=== PATIENT | female | born 1995 | race Caucasian/White ===

== ENCOUNTER → 2016-05-27 | Outpatient (CLI) | payer OTHER, MEDICAID ==
[~2016-05-27] MED LIST: DIFL150T PO; IBUP-232 PO; PROZ20CA11 PO; ZANTTAB PO; ZOFR4TAB3 SL
== END ==
LOC: HPND 09:54
PROVIDERS: ATTEND Obstetrics & Gynecology
DX: O35.8XX0 Maternal care for other (suspected) fetal abnormality and damage, not applicable or unspecified (principal)
CPT/HCPCS: 76811

== ENCOUNTER 2016-07-07 15:28 | Emergency (ER) | payer OTHER, MEDICAID ==
[~2016-07-07 15:28] MED LIST changes: -DIFL150T PO; -IBUP-232 PO; -PROZ20CA11 PO
[2016-07-07 15:48] VITALS: BP 120/71; PULSE 93; RESP 20; TEMP 98.3
[2016-07-07 16:15] VITALS: PULSE 89
[2016-07-07 16:20] VITALS: PULSE 86
--- NOTE | 2016-07-07 16:58 | PD ---
HPI Chief Complaint leaking fluid? Date Seen: Jul 07, 2016 Time Seen: 16:30 Travel History International Travel<30 Days: No Contact w/Intl Traveler<30Days: No Known Affected Area: No History of Present Illness HPI Pt is a 21 y/o with IUP at 32w5d who presents for evaluation of possible leaking fluid. Pt states that for past 2 days, she has noticed increased vaginal leaking, enough that underwear gets wet and she needs to change. Also noted streak of blood in underwear today. reports some irregular red-youssef contractions. +FM denies vaginal irritation/odor. Para: 0 : 2 History Past Medical History Narrative Medical depression Past Surgical History Surgical History: No Previous Surgery Family History Family History: CAD, htn, stroke, DM Social History Alcohol Use: No Tobacco Use: No Substance Abuse: No Allergies-Medications (Allergen,Severity, Reaction): Coded Allergies: Codeine (Verified Allergy, Severe, 02/04/16) Flagyl (Verified Allergy, Severe, 02/04/16) Sulfa (Verified Allergy, Severe, 02/04/16) Latex (Verified Allergy, Mild, RASH, 02/04/16) Home Meds Active Scripts Ondansetron Odt (Zofran Odt)4 Mg Tab4 Mg SL Q6HR PRN (Nausea/Vomiting) #10 TAB Ref 0 Prov:Zach Arora MD 01/20/16 Ranitidine (Zantac 150 Maximum Strength)150 Mg [id number] Mg PO BID 30 Days Prov:Zach Arora MD 01/20/16 Review of Systems General / Constitutional: No: Fever, Weight Gain, Weight Loss, Chills, Other Eyes: No: Diploplia, Blurred Vision, Visual changes, Pain, Photophobia, Other HENT: No: Headaches, Vertigo, Dental Difficulties, Lightheadedness, Other Cardiovascular: No: Irregular Rhythm, Chest Pain or Discomfort, Palpitations, Tachycardia, Syncope, Varicosities, Edema, Cyanosis, Other Respiratory: No: Cough, Short of Breath, Wheezing, Other Gastrointestinal: No: Nausea, Vomiting, Diarrhea, Abdominal Pain, Hematemesis, Hematochezia, Constipation, Changes in Bowel Habits, Indigestion, Loss of Appetite, Other Genitourinary: No: Urgency, Frequency, Dysuria, Nocturia, Hematuria, Decreased Urinary Output, Oliguria, Hesitancy, Dribbling, Incontinence, Pelvic Pain, Dyspareunia, Discharge, Menorrhagia, Vaginal Bleeding, Other Musculoskeletal: No: Limited ROM, Weakness, Cramping, Edema, Pain, Other Skin: No Rash, No Itching, No Dryness, No Lumps, No Change in Pigmentation, No Change in Nails, No Alopecia, No Lesions, No Breast Lumps, No Breast Tenderness , No Breast Swelling, No Other Neurologic: No: Weakness, Dizziness, Syncope, Focal Abnormalities, Coordination Problem, Headache, Slurred Speech, Seizures, Other Psychiatric: No: Anxiety, Depression, Suicidal Ideations, Disorder of Thought, Mood Disorder, Substance Abuse, Homicidal Ideation, Other Endocrine: No: Heat Intolerance, Cold Intolerance, Polydipsia, Polyuria, Other Hematologic/Lymphatic: No Easy Bruising, No Lymph Node Enlargement, No Other Physical Exam 120/71, 93, 20, 98.3 Narrative GENERAL: Well-nourished, well-developed patient. SKIN: Warm and dry. HEAD: Normocephalic and atraumatic. EYES: No scleral icterus. No injection or drainage. ENT: No nasal drainage noted. Mucous membranes pink. Airway patent. NECK: Supple, trachea midline. No JVD. CARDIOVASCULAR: Regular rate and rhythm without murmurs, gallops, or rubs. RESPIRATORY: Breath sounds equal bilaterally. No accessory muscle use. ABDOMEN/GI: Abdomen soft, non-tender, bowel sounds present, no rebound, no guarding Gravid GENITOURINARY: External Genitalia: intact and normal in appearance BUS glands: [wnl-] Cervix: visually closed Dilatation: closed Effacement: long Station: high Presentation: - Membranes: intact, amnisure neg Uterine Contractions: none spec exam: thick white discharge, adherent to vaginal vault, moderate amount of white fluid in vault FHT's: Category: [1] Baseline: 130s Reactive: yes Variability: mod Decels: no EXTREMITIES: No cyanosis or edema. BACK: Nontender without obvious deformity. No CVA tenderness. NEUROLOGICAL: Awake and alert. Motor and sensory grossly within normal limits. Five out of 5 muscle strength in all muscle groups. Normal speech. Data Data Vital Signs Reviewed: Yes Orders Vital Signs (Adult) .ON ADMISSION (07/07/16 15:54) ^ Labor Status (07/07/16 15:54) ^ Non Stress Test (07/07/16 15:54) ^ Hydration (07/07/16 15:54) Pamg-1 Test .ONCE (07/07/16 15:54) Vital Signs (Adult) .ON ADMISSION (07/07/16 16:38) ^ Labor Status (07/07/16 16:38) Wet Prep Profile (07/07/16 16:38) Labs Laboratory Tests Test 07/07/16 16:30 Clue Cells (Wet Prep) NONE SEEN Vaginal Trichomonas (Wet Prep) NONE SEEN Vaginal Yeast (Wet Prep) PRESENT MDM Medical Record Reviewed: Yes Narrative Course / MDM 21 y/o with IUP at 32.5 weeks c/o leaking fluid --no evidence of SROM --wet prep + for yeast and exam c/w yeast discharge rx diflucan d/c home Diagnosis Diagnosis: Primary Impression: Yeast vaginitis Additional Impression: 32 weeks gestation of Disposition: DISCHARGE HOME Condition: Stable Scripts Fluconazole (Diflucan)150 Mg [id number] Mg PO ONCE #1 TAB Ref 1 Prov:Rain Urrutia MD 07/07/16 Rain Urrutia MD Jul 07, 2016 16:58
[2016-07-07] MEDS ORDERED: DIFL150T PO (17:31)
== END 2016-07-07 17:36 | disposition home or self-care (01) ==
LOC: HOBED 15:28
DX: O23.593 Infection of other part of genital tract in pregnancy, third trimester (principal); B37.3 Candidiasis of vulva and vagina; Z3A.32 32 weeks gestation of pregnancy
CPT/HCPCS: 84112; 87210; 99284

== ENCOUNTER → 2016-08-04 | Outpatient (CLI) | payer MEDICAID ==
[~2016-08-04] MED LIST changes: +DIFL150T PO; +IBUP-232 PO; +PROZ20CA11 PO
== END ==
LOC: HPND 12:35
PROVIDERS: ATTEND Obstetrics & Gynecology
DX: O36.8130 Decreased fetal movements, third trimester, not applicable or unspecified (principal)
CPT/HCPCS: 76816; 76818

== ENCOUNTER 2016-08-10 12:32 | Emergency (ER) | payer MEDICAID ==
[~2016-08-10 12:32] MED LIST changes: -IBUP-232 PO; -PROZ20CA11 PO
[2016-08-10 13:31] LABS: AUTOMATED NEUTROPHIL # 11.7 TH/MM3 (1.8-7.7); BASOPHIL % 0.2 % (0.0-2.0); EOSINOPHIL # 0.1 TH/MM3 (0-0.4); EOSINOPHIL % 0.5 % (0.0-4.0); HEMATOCRIT 31.8 % (35.0-46.0); HEMO FLAGS DIFF FINAL; LYMPH % 13.3 % (9.0-44.0); MEAN CELL VOLUME 80.1 FL (80.0-100.0); MEAN CORPUSCULAR HEMOGLOBIN 26.8 PG (27.0-34.0); MEAN CORPUSCULAR HGB CONC 33.4 % (32.0-36.0); MONO % 7.9 % (0.0-8.0); NEUT % 78.1 % (16.0-70.0); PLATELET COUNT 230 TH/MM3 (150-450); RED BLOOD COUNT 3.98 MIL/MM3 (4.00-5.30); RED CELL DISTRIBUTION WIDTH 14.7 % (11.6-17.2)
[2016-08-10 13:55] LABS: URIC ACID 3.3 MG/DL (2.6-6.0)
[2016-08-10 13:57] LABS: INDIRECT BILIRUBIN 0.2 MG/DL (0.0-0.8); TOTAL BILIRUBIN ADULT 0.3 MG/DL (0.2-1.0)
[2016-08-10 14:03] LABS: BACTERIA, URINE MOD /hpf; BLOOD, URINE NEG (NEG); GLUCOSE,URINE NEG (NEG); KETONE, URINE NEG (NEG); MUCUS URINE FEW /lpf (OCC); NITRITE,URINE NEG (NEG); SQUAMOUS EPITHELIAL CELL URINE 8 /hpf (0-5); URINE COLOR YELLOW (YELLW/STRAW)
[2016-08-10 14:04] LABS: COMMENT (UR) CULTURE INDICATED; CULTURE IF INDICATED CULTURE INDICATED
--- NOTE | 2016-08-10 14:22 | PD ---
HPI Chief Complaint Spots in vision Pt is a 21 yo at 37weeks and sent from Doctor's office with elevated BP 150/70. Travel History International Travel<30 Days: No Contact w/Intl Traveler<30Days: No Allergies-Medications (Allergen,Severity, Reaction): Coded Allergies: Codeine (Verified Allergy, Severe, 02/04/16) Flagyl (Verified Allergy, Severe, 02/04/16) Sulfa (Verified Allergy, Severe, 02/04/16) Latex (Verified Allergy, Mild, RASH, 02/04/16) Home Meds Active Scripts Fluconazole (Diflucan)150 Mg [id number] Mg PO ONCE #1 TAB Ref 1 Prov:Rain Urrutia MD 07/07/16 Ondansetron Odt (Zofran Odt)4 Mg Tab4 Mg SL Q6HR PRN (Nausea/Vomiting) #10 TAB Ref 0 Prov:Zach Arora MD 01/20/16 Ranitidine (Zantac 150 Maximum Strength)150 Mg [id number] Mg PO BID 30 Days Prov:Zach Arora MD 01/20/16 Physical Exam Narrative GENERAL: Well-nourished, well-developed patient. SKIN: Warm and dry. HEAD: Normocephalic and atraumatic. EYES: No scleral icterus. No injection or drainage. ENT: No nasal drainage noted. Mucous membranes pink. Airway patent. NECK: Supple, trachea midline. No JVD. CARDIOVASCULAR: Regular rate and rhythm without murmurs, gallops, or rubs. RESPIRATORY: Breath sounds equal bilaterally. No accessory muscle use. BREASTS: Bilateral exam showed no masses , no retractions, no nipple discharge. ABDOMEN/GI: Abdomen soft, non-tender, bowel sounds present, no rebound, no guarding Gravid to [-] weeks size Fundal Height: [-] GENITOURINARY: External Genitalia: intact and normal in appearance BUS glands: [-] Cervix: [-] Dilatation: [-] Effacement: [-] Station: [-] Presentation: [-] Membranes: [intact or ruptured] Uterine Contractions: [-] FHT's: Category: [-] Baseline: [-] Reactive: [-] Variability: [-] Decels: [-] EXTREMITIES: No cyanosis or edema. BACK: Nontender without obvious deformity. No CVA tenderness. NEUROLOGICAL: Awake and alert. Motor and sensory grossly within normal limits. Five out of 5 muscle strength in all muscle groups. Normal speech. Data Data Orders Urinalysis - C+S If Indicated (08/10/16 13:23) Complete Blood Count With Diff (08/10/16 13:23) Hepatic Functional Panel (08/10/16 13:23) Uric Acid (08/10/16 13:23) Urine Culture (08/10/16 12:50) Labs Laboratory Tests Test 08/10/16 12:50 White Blood Count 15.0 Red Blood Count 3.98 Hemoglobin 10.6 Hematocrit 31.8 Mean Corpuscular Volume 80.1 Mean Corpuscular Hemoglobin 26.8 Mean Corpuscular Hemoglobin 33.4 Concent Red Cell Distribution Width 14.7 Platelet Count 230 Mean Platelet Volume 11.1 Neutrophils (%) (Auto) 78.1 Lymphocytes (%) (Auto) 13.3 Monocytes (%) (Auto) 7.9 Eosinophils (%) (Auto) 0.5 Basophils (%) (Auto) 0.2 Neutrophils # (Auto) 11.7 Lymphocytes # (Auto) 2.0 Monocytes # (Auto) 1.2 Eosinophils # (Auto) 0.1 Basophils # (Auto) 0.0 CBC Comment DIFF FINAL Differential Comment Urine Color YELLOW Urine Turbidity HAZY Urine pH 6.0 Urine Specific [place] 1.015 Urine Protein TRACE Urine Glucose (UA) NEG Urine Ketones NEG Urine Occult Blood NEG Urine Nitrite NEG Urine Bilirubin NEG Urine Urobilinogen LESS THAN 2.0 Urine Leukocyte Esterase LARGE Urine RBC 2 Urine WBC 29 Urine Squamous Epithelial 8 Cells Urine Bacteria MOD Urine Mucus FEW Microscopic Urinalysis Comment CULTURE INDICATED Uric Acid 3.3 Total Bilirubin 0.3 Direct Bilirubin 0.1 Indirect Bilirubin 0.2 Aspartate Amino Transf 15 (AST/SGOT) Alanine Aminotransferase 18 (ALT/SGPT) Alkaline Phosphatase 180 Total Protein 7.0 Albumin 2.7 Date/Time Procedure Status Source Growth 08/10/16 12:50 Urine Culture Received Urine Clean Catch Pending MDM Medical Record Reviewed: Yes Plan Pt is being discharged home. BP have remained normal throughout her stay here. [facility] labs are all within normal Diagnosis Diagnosis: Primary Impression: 37 weeks gestation of Additional Impression: Blurred vision, bilateral Disposition: 01 DISCHARGE HOME Condition: Good Carl Mcnulty MD August 10, 2016 14:22
== END 2016-08-10 14:35 | disposition home or self-care (01) ==
LOC: HOBED 12:32
DX: O99.89 Other specified diseases and conditions complicating pregnancy, childbirth and the puerperium (principal); H53.8 Other visual disturbances; R82.99 Other abnormal findings in urine; Z3A.37 37 weeks gestation of pregnancy
CPT/HCPCS: 80076; 81001; 84550; 85025; 87086; 99282

== ENCOUNTER 2016-08-15 19:41 | Emergency (ER) | payer MEDICAID ==
--- NOTE | 2016-08-15 20:31 | PD ---
HPI Chief Complaint Headache Date Seen: August 15, 2016 Time Seen: 20:22 Travel History International Travel<30 Days: No Contact w/Intl Traveler<30Days: No Known Affected Area: No History of Present Illness HPI 21-year-old who is at 38 weeks and 1 day comes in complaining of headache since 1 PM. Just complains of some blurry vision, emesis 1. Patient to 3 extra strength Tylenol over 2 hours without alleviating her headache. Patient does have a history of headaches in the past. She was seen 3 days ago due to an elevated blood pressure in the office and a PIH workup was negative. Patient had trace urine protein, normal CBC, normal basic metabolic, and a uric acid of 3.3. Patient had normal blood pressures the entire time she was there and is due for follow-up in the office on Tuesday. Denies edema. Para: 0 : 2 Miscarriage: 1 History Past Medical History Medical History: Denies Significant Hx Past Surgical History Surgical History: No Previous Surgery Family History Family History: Negative Social History Alcohol Use: No Tobacco Use: No Substance Abuse: No Allergies-Medications (Allergen,Severity, Reaction): Coded Allergies: Codeine (Verified Allergy, Severe, 02/04/16) Flagyl (Verified Allergy, Severe, 02/04/16) Sulfa (Verified Allergy, Severe, 02/04/16) Latex (Verified Allergy, Mild, RASH, 02/04/16) Home Meds Active Scripts Fluconazole (Diflucan)150 Mg [id number] Mg PO ONCE #1 TAB Ref 1 Prov:Rain Urrutia MD 07/07/16 Ondansetron Odt (Zofran Odt)4 Mg Tab4 Mg SL Q6HR PRN (Nausea/Vomiting) #10 TAB Ref 0 Prov:Zach Arora MD 01/20/16 Ranitidine (Zantac 150 Maximum Strength)150 Mg [id number] Mg PO BID 30 Days Prov:Zach Arora MD 01/20/16 Review of Systems Except as stated in HPI: all other systems reviewed are Neg Physical Exam Narrative GENERAL: Well-nourished, well-developed patient. SKIN: Warm and dry. HEAD: Normocephalic and atraumatic. EYES: No scleral icterus. No injection or drainage. ENT: No nasal drainage noted. Mucous membranes pink. Airway patent. NECK: Supple, trachea midline. No JVD. CARDIOVASCULAR: Regular rate and rhythm without murmurs, gallops, or rubs. RESPIRATORY: Breath sounds equal bilaterally. No accessory muscle use. BREASTS: Bilateral exam showed no masses , no retractions, no nipple discharge. ABDOMEN/GI: Abdomen soft, non-tender, bowel sounds present, no rebound, no guarding Gravid to [36-] weeks size Fundal Height: [-] GENITOURINARY: deferred External Genitalia: intact and normal in appearance BUS glands: [-] Cervix: [-] Dilatation: [-] Effacement: [-] Station: [-] Presentation: [-] Membranes: [intact or ruptured] Uterine Contractions: [-] FHT's: Category: [-1] Baseline: [-] Reactive: [-] Variability: [-] Decels: [-] EXTREMITIES: No cyanosis or edema. BACK: Nontender without obvious deformity. No CVA tenderness. NEUROLOGICAL: Awake and alert. Motor and sensory grossly within normal limits. Five out of 5 muscle strength in all muscle groups. Normal speech. Data Data Vital Signs Reviewed: Yes (BP 130/72) Labs Laboratory Tests Test 08/15/16 08/15/16 20:02 20:45 Urine Color YELLOW Urine Turbidity CLEAR Urine pH 6.0 Urine Specific [place] 1.007 Urine Protein NEG mg/dL Urine Glucose (UA) NEG mg/dL Urine Ketones NEG mg/dL Urine Occult Blood NEG Urine Nitrite NEG Urine Bilirubin NEG Urine Urobilinogen LESS THAN 2.0 MG/DL Urine Leukocyte Esterase SMALL Urine RBC LESS THAN 1 /hpf Urine WBC 6 /hpf Urine Squamous Epithelial 2 /hpf Cells Urine Mucus FEW /lpf Microscopic Urinalysis Comment CULT NOT INDICATED White Blood Count 11.2 TH/MM3 Red Blood Count 3.83 MIL/MM3 Hemoglobin 10.3 GM/DL Hematocrit 30.9 % Mean Corpuscular Volume 80.6 FL Mean Corpuscular Hemoglobin 26.9 PG Mean Corpuscular Hemoglobin 33.3 % Concent Red Cell Distribution Width 15.0 % Platelet Count 205 TH/MM3 Mean Platelet Volume 10.6 FL Sodium Level 139 MEQ/L Potassium Level 3.5 MEQ/L Chloride Level 107 MEQ/L Carbon Dioxide Level 20.8 MEQ/L Anion Gap 11 MEQ/L Blood Urea Nitrogen 9 MG/DL Creatinine 0.60 MG/DL Estimat Glomerular Filtration 124 ML/MIN Rate Random Glucose 100 MG/DL Uric Acid 4.0 MG/DL Calcium Level 8.4 MG/DL [facility] Medical Record Reviewed: Yes Plan 21-year-old who is at 38 weeks 1 day with a complaint of headache Blood pressures are normal here in the OB ED Blood work 3 days ago as a workup for PIH was normal, uric acid was 3.3, trace protein. Bloodwork today is normal Patient has declined medication for her headache and states that she will just use an ice pack hydration and rest. Patient notes significant improvement after IV hydration. Diagnosis Diagnosis: Primary Impression: Headache in , antepartum Additional Impression: 37 weeks gestation of Disposition: 01 DISCHARGE HOME Gaby Shabazz MD August 15, 2016 20:31
[2016-08-15] MEDS ORDERED: LACTATED RINGER'S 1000 ML INJ 1,000 ML IV ONE (20:45)
[2016-08-15 21:03] LABS: HEMATOCRIT 30.9 % (35.0-46.0); MEAN CELL VOLUME 80.6 FL (80.0-100.0); MEAN CORPUSCULAR HEMOGLOBIN 26.9 PG (27.0-34.0); MEAN CORPUSCULAR HGB CONC 33.3 % (32.0-36.0); PLATELET COUNT 205 TH/MM3 (150-450); RED BLOOD COUNT 3.83 MIL/MM3 (4.00-5.30); REVIEW FLAG FINAL; WHITE BLOOD COUNT 11.2 TH/MM3 (4.0-11.0)
[2016-08-15 21:33] LABS: BLOOD, URINE NEG (NEG); COMMENT (UR) CULT NOT INDICATED; CULTURE IF INDICATED CULT NOT INDICATED; GLUCOSE,URINE NEG (NEG); KETONE, URINE NEG (NEG); MUCUS URINE FEW /lpf (OCC); NITRITE,URINE NEG (NEG); SQUAMOUS EPITHELIAL CELL URINE 2 /hpf (0-5); URINE COLOR YELLOW (YELLW/STRAW)
[2016-08-15 21:34] LABS: BICARBONATE 20.8 MEQ/L (21.0-32.0); POTASSIUM 3.5 MEQ/L (3.5-5.1)
== END 2016-08-15 22:01 | disposition home or self-care (01) ==
LOC: HOBED 19:41
DX: O26.893 Other specified pregnancy related conditions, third trimester (principal); R51 Headache; H53.8 Other visual disturbances; Z3A.37 37 weeks gestation of pregnancy
CPT/HCPCS: 59025; 80048; 81001; 84550; 85027; 99284; J7120

== ENCOUNTER 2016-08-23 11:29 | Emergency (ER) | payer MEDICAID ==
[2016-08-23] MEDS ORDERED: PROZ20CA11 PO (11:58)
[2016-08-23 12:00] VITALS: RESP 18; TEMP 98.1
--- NOTE | 2016-08-23 13:09 | PD ---
HPI Chief Complaint spotting Date Seen: Aug 23, 2016 Time Seen: 13:00 Travel History International Travel<30 Days: No Contact w/Intl Traveler<30Days: No Known Affected Area: No History of Present Illness HPI PT is a 21 y/o with IUP at 39.2 wks who presents with c/o spotting with wiping this am and abdominal pain. Pt reports that she went to restroom around 4 am and noted bright red blood on tissue. Pt was not sure if it was from hemorrhoid or if it was from vagina. Pt reports some intermittent ab pain/ tightening. She denies gush of fluid. She reports +FM. Para: 0 : 2 Miscarriage: 1 (ectopic) History Past Medical History Narrative Medical depression, HSV Obstetric History Obstetric History ectopic x 1 Family History Family History: Negative Social History Alcohol Use: No Tobacco Use: No Substance Abuse: No Allergies-Medications (Allergen,Severity, Reaction): Coded Allergies: Codeine (Verified Allergy, Severe, 02/04/16) Flagyl (Verified Allergy, Severe, 02/04/16) Sulfa (Verified Allergy, Severe, 02/04/16) Latex (Verified Allergy, Mild, RASH, 02/04/16) Home Meds Reported Medications Fluoxetine (Prozac)20 Mg Cap20 Mg PO DAILY #30 CAP Ref 0 08/23/16 Discontinued Scripts Fluconazole (Diflucan)150 Mg [id number] Mg PO ONCE #1 TAB Ref 1 Prov:Rain Urrutia MD 07/07/16 Ondansetron Odt (Zofran Odt)4 Mg Tab4 Mg SL Q6HR PRN (Nausea/Vomiting) #10 TAB Ref 0 Prov:Zach Arora MD 01/20/16 Ranitidine (Zantac 150 Maximum Strength)150 Mg [id number] Mg PO BID 30 Days Prov:Zach Arora MD 01/20/16 Review of Systems General / Constitutional: No: Fever, Weight Gain, Weight Loss, Chills, Other Eyes: No: Diploplia, Blurred Vision, Visual changes, Pain, Photophobia, Other HENT: No: Headaches, Vertigo, Dental Difficulties, Lightheadedness, Other Cardiovascular: No: Irregular Rhythm, Chest Pain or Discomfort, Palpitations, Tachycardia, Syncope, Varicosities, Edema, Cyanosis, Other Respiratory: No: Cough, Short of Breath, Wheezing, Other Gastrointestinal: No: Nausea, Vomiting, Diarrhea, Abdominal Pain, Hematemesis, Hematochezia, Constipation, Changes in Bowel Habits, Indigestion, Loss of Appetite, Other Genitourinary: Vaginal Bleeding Musculoskeletal: No: Limited ROM, Weakness, Cramping, Edema, Pain, Other Skin: No Rash, No Itching, No Dryness, No Lumps, No Change in Pigmentation, No Change in Nails, No Alopecia, No Lesions, No Breast Lumps, No Breast Tenderness , No Breast Swelling, No Other Neurologic: No: Weakness, Dizziness, Syncope, Focal Abnormalities, Coordination Problem, Headache, Slurred Speech, Seizures, Other Psychiatric: No: Anxiety, Depression, Suicidal Ideations, Disorder of Thought, Mood Disorder, Substance Abuse, Homicidal Ideation, Other Endocrine: No: Heat Intolerance, Cold Intolerance, Polydipsia, Polyuria, Other Hematologic/Lymphatic: No Easy Bruising, No Lymph Node Enlargement, No Other Physical Exam Vital Signs Date Time Temp Pulse Resp B/P Pulse Ox O2 Delivery O2 Flow Rate FiO2 08/23/16 12:00 98.1 18 Narrative GENERAL: Well-nourished, well-developed patient. SKIN: Warm and dry. HEAD: Normocephalic and atraumatic. EYES: No scleral icterus. No injection or drainage. ENT: No nasal drainage noted. Mucous membranes pink. Airway patent. NECK: Supple, trachea midline. No JVD. CARDIOVASCULAR: Regular rate and rhythm without murmurs, gallops, or rubs. RESPIRATORY: Breath sounds equal bilaterally. No accessory muscle use. ABDOMEN/GI: Abdomen soft, non-tender, bowel sounds present, no rebound, no guarding Gravid GENITOURINARY: External Genitalia: intact and normal in appearance BUS glands: [wnl] Cervix: visually closed and without lesions speculum exam: moderate amount of homogeneous white discharge in vault Dilatation: 1 Effacement: 25 Station: -3 Presentation: [ceph] Membranes: intact (amnisure neg) Uterine Contractions: irritability FHT's: Category: 1 Baseline: 130s Reactive: yes Variability: mod Decels: no EXTREMITIES: 1+ pedal edema BACK: Nontender without obvious deformity. No CVA tenderness. NEUROLOGICAL: Awake and alert. Motor and sensory grossly within normal limits. Five out of 5 muscle strength in all muscle groups. Normal speech. Data Data Vital Signs Reviewed: Yes Orders Vital Signs (Adult) .ON ADMISSION (08/23/16 12:50) ^ Labor Status (08/23/16 12:50) ^ Hydration (08/23/16 12:50) Wet Prep Profile (08/23/16 12:50) Labs Laboratory Tests Test 08/23/16 12:48 Clue Cells (Wet Prep) NONE SEEN Vaginal Trichomonas (Wet Prep) NONE SEEN Vaginal Yeast (Wet Prep) NONE SEEN MDM Medical Record Reviewed: Yes Narrative Course / MDM 21 y/o with IUP at 39.2 wks with spotting no active bleeding on exam no evidence of labor or heart rate abnormalities plan: d/c home labor precautions, fkc keep ob appt Diagnosis Diagnosis: Primary Impression: 39 weeks gestation of Additional Impression: Spotting affecting in third trimester Disposition: 01 DISCHARGE HOME Condition: Stable Patient Instructions: Having Your Baby: The Labor Process (GEN), General Instructions Rain Urrutia MD Aug 23, 2016 13:09
== END 2016-08-23 14:14 | disposition home or self-care (01) ==
LOC: HOBED 11:29
DX: O26.853 Spotting complicating pregnancy, third trimester (principal); Z3A.39 39 weeks gestation of pregnancy
CPT/HCPCS: 84112; 87210; 99284

== ENCOUNTER 2016-08-27 05:59 | Inpatient (IN) | payer MEDICAID ==
[~2016-08-27] VITALS: Ht 170.2 cm; Wt 99.8 kg
[2016-08-27] VITALS (43 sets, daily range): BP systolic 96–157; BP diastolic 66–115; PULSE 62–126; RESP 18–20; TEMP 98–99.6
[~2016-08-27 05:59] MED LIST changes: -DIFL150T PO; +PROZ20CA11 PO; -ZANTTAB PO; -ZOFR4TAB3 SL
--- NOTE | 2016-08-27 06:35 | PD ---
HPI Chief Complaint leakage of fluid Date Seen: Aug 27, 2016 Travel History International Travel<30 Days: No Contact w/Intl Traveler<30Days: No History of Present Illness HPI 21 yo @ 39w6d with SHOAIB 08-28-2016. care with Dr. Spencer. GBS negative. Had abnormal GS, no GTT. hydronephrosis noted on US. Patient was seen in the clinic yesterday and "had membranes striped", she was not dilated. This AM she had a gush of fluid/bloody. She c/o irregular UC. She has had FM this AM. Hx of HSV. History Past Medical History Narrative Medical Concussion Depression Ectopic HSV Obstetric History Obstetric History Ectopic Past Surgical History Surgical History: No Previous Surgery Family History Family History: Negative Social History Alcohol Use: No Tobacco Use: No (former) Substance Abuse: No Allergies-Medications (Allergen,Severity, Reaction): Coded Allergies: Codeine (Verified Allergy, Severe, 02/04/16) Flagyl (Verified Allergy, Severe, 02/04/16) Sulfa (Verified Allergy, Severe, 02/04/16) Latex (Verified Allergy, Mild, RASH, 02/04/16) Home Meds Reported Medications Fluoxetine (Prozac)20 Mg Cap20 Mg PO DAILY #30 CAP Ref 0 08/23/16 Discontinued Scripts Fluconazole (Diflucan)150 Mg [id number] Mg PO ONCE #1 TAB Ref 1 Prov:Rain Urrutia MD 07/07/16 Ondansetron Odt (Zofran Odt)4 Mg Tab4 Mg SL Q6HR PRN (Nausea/Vomiting) #10 TAB Ref 0 Prov:Zach Arora MD 01/20/16 Ranitidine (Zantac 150 Maximum Strength)150 Mg [id number] Mg PO BID 30 Days Prov:Zach Arora MD 01/20/16 Review of Systems General / Constitutional: No: Fever, Chills HENT: No: Headaches, Lightheadedness Cardiovascular: No: Chest Pain or Discomfort, Palpitations Respiratory: No: Cough, Short of Breath Gastrointestinal: Abdominal Pain (contractions), No: Nausea, Vomiting, Diarrhea Genitourinary: Hematuria, Vaginal Bleeding (bloody fluid of ROM), No: Urgency , Frequency, Dysuria, Incontinence Skin: No Rash, No Itching, No Lesions Neurologic: No: Focal Abnormalities Psychiatric: Depression (on Prozac) Physical Exam Vital Signs Date Time Temp Pulse Resp B/P Pulse Ox O2 Delivery O2 Flow Rate FiO2 08/27/16 06:12 94 18 135/90 Narrative GENERAL: Well-nourished, well-developed patient. SKIN: Warm and dry. HEAD: Normocephalic and atraumatic. EYES: No scleral icterus. No injection or drainage. ENT: No nasal drainage noted. Mucous membranes pink. Airway patent. NECK: trachea midline. No JVD. CARDIOVASCULAR: Regular rate and rhythm without murmurs, gallops, or rubs. RESPIRATORY: Breath sounds equal bilaterally. No accessory muscle use. ABDOMEN/GI: Abdomen soft, non-tender, no rebound, no guarding Gravid GENITOURINARY: External Genitalia: intact and normal in appearance SSE: small amount of bloody fluid in vault AmniSure POS SVE: 70/-3 no membranes palpated, vtx FHT's: Baseline: 140 Reactive: +acceleration to 160 Variability: moderate Decels: [-] EXTREMITIES: No cyanosis or edema. BACK: Nontender without obvious deformity. No CVA tenderness. NEUROLOGICAL: Awake and alert. Motor and sensory grossly within normal limits. Normal speech. Data Data Vital Signs Reviewed: Yes Orders Vital Signs (Adult) .ON ADMISSION (08/27/16 06:11) ^ Labor Status (08/27/16 06:11) ^ Non Stress Test (08/27/16 06:11) Pamg-1 Test .ONCE (08/27/16 06:11) MDM Narrative Course / MDM 39 weeks Suspected PROM with blood tinged fluid FHT reassuring but only intermittent accelerations, no decelerations GBS negative D/w Dr. Spencer Plan Admit Nelsy has increased, expectant management Pitocin augmentation as needed will notify Dr. Spencer. Dior Cueto MD Aug 27, 2016 06:35
[2016-08-27] MEDS ORDERED: LACTATED RINGER'S 1000 ML INJ 1,000 ML IV PRN (06:36)
[2016-08-27] MEDS ORDERED: MINERAL OIL 10 ML VIAL TOPICAL PRN (06:45)
[2016-08-27] MEDS ORDERED: SODIUM CHLORID 0.9% 500 ML INJ 500 ML IV PRN (06:45)
[2016-08-27] MEDS ORDERED: OXYTOCIN 30 UNITS-500ML PREMIX 500 ML IV ONE (06:45)
[2016-08-27] MEDS ORDERED: LIDOCAINE HCL 1% 50 ML VIAL INFIL PRN (06:45)
[2016-08-27] MEDS ORDERED: ONDANSETRON HCL 4 MG/2 ML VIAL IV PRN (06:45)
[2016-08-27] MEDS ORDERED: LIDOCAINE HCL 1% 50 ML VIAL I-DERMAL PRN (06:45)
[2016-08-27] MEDS ORDERED: CITRIC ACID-SODIUM CITRATE LIQ 30 ML UDC PO SCH (06:45)
[2016-08-27] MEDS ORDERED: SODIUM CHLOR 0.9% 1000 ML INJ 1,000 ML IV PRN (06:56)
--- NOTE | 2016-08-27 07:11 | HHI.HP ---
History & Physical H&P Patient Name: Carissa Mercer Unit Number: [id number] Date of : 1995 Patient Status: Admitted Inpatient Attending Doctor: Eric Spencer MD HPI HPI Chief Complaint leakage of fluid Date Seen: Aug 27, 2016 Travel History International Travel<30 Days: No Contact w/Intl Traveler<30Days: No History of Present Illness HPI 21 yo @ 39w6d with SHOAIB 08-28-2016. care with Dr. Spencer. GBS negative. Had abnormal GS, no GTT. hydronephrosis noted on US. Patient was seen in the clinic yesterday and "had membranes striped", she was not dilated. This AM she had a gush of fluid/bloody. She c/o irregular UC. She has had FM this AM. Hx of HSV. History (Limited) History Past Medical History Narrative Medical Concussion Depression Ectopic HSV Obstetric History Obstetric History Ectopic Past Surgical History Surgical History: No Previous Surgery Family History Family History: Negative Social History Alcohol Use: No Tobacco Use: No (former) Substance Abuse: No Allergies-Medications Allergies-Medications (Allergen,Severity, Reaction): Coded Allergies: Codeine (Verified Allergy, Severe, 02/04/16) Flagyl (Verified Allergy, Severe, 02/04/16) Sulfa (Verified Allergy, Severe, 02/04/16) Latex (Verified Allergy, Mild, RASH, 02/04/16) Home Meds Reported Medications Fluoxetine (Prozac)20 Mg Cap20 Mg PO DAILY #30 CAP Ref 0 08/23/16 Discontinued Scripts Fluconazole (Diflucan)150 Mg [id number] Mg PO ONCE #1 TAB Ref 1 Prov:Rain Urrutia MD 07/07/16 Ondansetron Odt (Zofran Odt)4 Mg Tab4 Mg SL Q6HR PRN (Nausea/Vomiting) #10 TAB Ref 0 Prov:Zach Arora MD 01/20/16 Ranitidine (Zantac 150 Maximum Strength)150 Mg [id number] Mg PO BID 30 Days Prov:Zach Arora MD 01/20/16 ROS Review of Systems General / Constitutional: No: Fever, Chills HENT: No: Headaches, Lightheadedness Cardiovascular: No: Chest Pain or Discomfort, Palpitations Respiratory: No: Cough, Short of Breath Gastrointestinal: Abdominal Pain (contractions), No: Nausea, Vomiting, Diarrhea Genitourinary: Hematuria, Vaginal Bleeding (bloody fluid of ROM), No: Urgency , Frequency, Dysuria, Incontinence Skin: No Rash, No Itching, No Lesions Neurologic: No: Focal Abnormalities Psychiatric: Depression (on Prozac) Physical Exam Physical Exam Vital Signs Date Time Temp Pulse Resp B/P Pulse Ox O2 Delivery O2 Flow Rate FiO2 08/27/16 06:12 94 18 135/90 Narrative GENERAL: Well-nourished, well-developed patient. SKIN: Warm and dry. HEAD: Normocephalic and atraumatic. EYES: No scleral icterus. No injection or drainage. ENT: No nasal drainage noted. Mucous membranes pink. Airway patent. NECK: trachea midline. No JVD. CARDIOVASCULAR: Regular rate and rhythm without murmurs, gallops, or rubs. RESPIRATORY: Breath sounds equal bilaterally. No accessory muscle use. ABDOMEN/GI: Abdomen soft, non-tender, no rebound, no guarding Gravid GENITOURINARY: External Genitalia: intact and normal in appearance SSE: small amount of bloody fluid in vault AmniSure POS SVE: 70/-3 no membranes palpated, vtx FHT's: Baseline: 140 Reactive: +acceleration to 160 Variability: moderate Decels: [-] EXTREMITIES: No cyanosis or edema. BACK: Nontender without obvious deformity. No CVA tenderness. NEUROLOGICAL: Awake and alert. Motor and sensory grossly within normal limits. Normal speech. Data Data Data Vital Signs Reviewed: Yes Orders Vital Signs (Adult) .ON ADMISSION (08/27/16 06:11) ^ Labor Status (08/27/16 06:11) ^ Non Stress Test (08/27/16 06:11) Pamg-1 Test .ONCE (08/27/16 06:11) MDM MDM Narrative Course / MDM 39 weeks Suspected PROM with blood tinged fluid FHT reassuring but only intermittent accelerations, no decelerations GBS negative D/w Dr. Spencer Plan Admit Nelsy has increased, expectant management Pitocin augmentation as needed will notify Dr. Spencer. Dior Cueto MD Aug 27, 2016 06:35 Dior Cueto MD Aug 27, 2016 07:11
[2016-08-27] MEDS ORDERED: OXYTOCIN 30 UNITS-500ML PREMIX 500 ML IV SCH (07:45)
[2016-08-27 08:07] LABS: BACTERIA, URINE OCC /hpf; BLOOD, URINE LARGE (NEG); COMMENT (UR) CULT NOT INDICATED; CULTURE IF INDICATED CULT NOT INDICATED; GLUCOSE,URINE NEG (NEG); KETONE, URINE TRACE mg/dL (NEG); NITRITE,URINE NEG (NEG); SQUAMOUS EPITHELIAL CELL URINE 2 /hpf (0-5)
[2016-08-27 08:08] LABS: URINE COLOR RED (YELLW/STRAW)
[2016-08-27 08:14] LABS: AUTOMATED NEUTROPHIL # 10.2 TH/MM3 (1.8-7.7); BASOPHIL % 0.3 % (0.0-2.0); EOSINOPHIL # 0.1 TH/MM3 (0-0.4); EOSINOPHIL % 0.7 % (0.0-4.0); HEMO FLAGS DIFF FINAL; LYMPH % 13.2 % (9.0-44.0); LYMPHOCYTE # 1.7 TH/MM3 (1.0-4.8); MEAN CELL VOLUME 78.4 FL (80.0-100.0); MEAN CORPUSCULAR HEMOGLOBIN 26.1 PG (27.0-34.0); MEAN CORPUSCULAR HGB CONC 33.2 % (32.0-36.0); MONO % 5.8 % (0.0-8.0); PLATELET COUNT 219 TH/MM3 (150-450); RED BLOOD COUNT 3.95 MIL/MM3 (4.00-5.30); RED CELL DISTRIBUTION WIDTH 15.7 % (11.6-17.2); WHITE BLOOD COUNT 12.7 TH/MM3 (4.0-11.0)
[2016-08-27 08:28] LABS: ALT (GPT) 15 U/L (10-53); ANION GAP 11 MEQ/L (5-15); AST (GOT) 15 U/L (15-37); BICARBONATE 20.3 MEQ/L (21.0-32.0); BLOOD UREA NITROGEN 10 MG/DL (7-18); CHLORIDE 107 MEQ/L (98-107); GLOMERULAR FILTRATION RATE 129 ML/MIN (>89); POTASSIUM 3.6 MEQ/L (3.5-5.1); SODIUM (NA) 138 MEQ/L (136-145); URIC ACID 4.7 MG/DL (2.6-6.0)
[2016-08-27 08:31] LABS: ALKALINE PHOSPHATASE 196 U/L (45-117); TOTAL BILIRUBIN ADULT 0.2 MG/DL (0.2-1.0)
[2016-08-27] MEDS: LACTATED RINGER'S 1000 ML INJ 1,000 ML IV SCH ×2 (08:32→14:36)
[2016-08-27] MEDS ORDERED: fentaNYL 2MCG-BUPIV 0.125% INJ 100 ML ONE (22:33)
[2016-08-28] VITALS (22 sets, daily range): BP systolic 83–137; BP diastolic 58–109; PULSE 86–165; RESP 18–22; TEMP 98–98.4
--- NOTE | 2016-08-28 00:32 | HHI.PR ---
Subjective Remarks Labor nurse states she has a h/o HSV and has a lesion down there. She has a resolving folliculitis on the right and a small lesion on the left. Neither looks like HSV and she denies any s/s of recurrent HSV. She is currently C/C/+3 Objective Vital Signs Date Time Temp Pulse Resp B/P Pulse Ox O2 Delivery O2 Flow Rate FiO2 08/28/16 00:05 93 126/79 08/28/16 00:05 93 126/79 08/28/16 00:05 101 08/28/16 00:00 101 131/75 08/28/16 00:00 88 08/27/16 23:55 120 08/27/16 23:55 120 08/27/16 23:55 108 129/83 08/27/16 23:50 122/82 08/27/16 23:50 89 08/27/16 23:50 93 122/82 08/27/16 23:50 89 08/27/16 23:45 84 131/77 08/27/16 23:40 75 137/84 08/27/16 23:40 137/84 08/27/16 23:40 78 08/27/16 23:35 79 08/27/16 23:35 75 137/79 08/27/16 23:30 74 144/84 08/27/16 23:30 73 08/27/16 23:30 73 08/27/16 23:25 77 138/81 08/27/16 23:25 78 08/27/16 23:20 77 08/27/16 23:20 74 141/87 08/27/16 23:15 80 08/27/16 23:15 75 147/92 08/27/16 23:10 89 08/27/16 23:10 79 157/97 08/27/16 23:05 74 149/84 08/27/16 23:05 85 08/27/16 23:00 73 143/78 08/27/16 23:00 84 08/27/16 22:55 78 08/27/16 22:55 83 135/75 08/27/16 22:50 81 152/91 08/27/16 22:46 84 138/92 08/27/16 22:45 85 08/27/16 22:41 89 148/101 08/27/16 22:40 94 08/27/16 22:37 78 148/115 08/27/16 22:31 110 140/108 08/27/16 22:00 80 139/89 08/27/16 21:45 18 08/27/16 21:30 101 110/67 08/27/16 21:00 83 119/70 08/27/16 20:30 95 128/83 08/27/16 20:15 18 08/27/16 20:01 75 96/76 08/27/16 19:45 18 08/27/16 19:30 84 128/81 08/27/16 19:01 98.3 20 08/27/16 19:01 90 131/82 08/27/16 18:42 20 08/27/16 18:15 99.6 08/27/16 18:14 126 122/77 08/27/16 18:14 20 08/27/16 16:29 20 08/27/16 16:29 98.4 08/27/16 13:09 80 126/81 08/27/16 13:07 98.1 18 08/27/16 11:36 62 134/66 08/27/16 10:31 98.0 08/27/16 09:30 76 125/78 08/27/16 08:30 120/74 08/27/16 08:30 78 08/27/16 07:30 98.0 08/27/16 07:30 18 08/27/16 07:20 80 133/90 08/27/16 06:12 94 18 135/90 Result Diagram: 08/27/16 0710 08/27/16 0710 Assessment and Plan Assessment and Plan Advanced labor H/O HSV she does have lesions that do not appear to be HSV and she has no /s/s of HSV. Will allow her to have a vaginal delivery. Eric Spencer MD Aug 28, 2016 00:32
[2016-08-28] MEDS ORDERED: AMMONIA AROMATIC INHALANT 0.33 ML ONE (00:34)
--- NOTE | 2016-08-28 01:12 | PD.OB.DELI ---
Delivery Date: Aug 28, 2016 Anesthesia: Epidural Episiotomy: Midline Vaginal Delivery: Normal Presentation: Occiput anterior Nuchal Cord: None Delayed cord clamping (45 sec): Yes Infant: Female One Minute : 8, 9 Five Minute : 9 Weight: 7/7 Placenta: Spontaneous delivery, Intact, Uterus explored +, 3 vessel cord Laceration: Episiotomy Repair: Vicryl running Additional Information Nice vaginal delivery of Guerrero. Small second degree midline episiotomy repaired with 3-0 vicryl. Large family present. Marilyn works in [employer]. Eric Spencer MD Aug 28, 2016 01:12
[2016-08-28] MEDS ORDERED: BENZOCAINE 20% TOPICAL SPRAY 60 ML CAN TOPICAL PRN (01:15)
[2016-08-28] MEDS ORDERED: SODIUM CHLORIDE 0.9% FLUSH 10 ML FLUSH IV FLUSH PRN (01:15)
[2016-08-28] MEDS ORDERED: ONDANSETRON ODT 4 MG TAB PO PRN (01:15)
[2016-08-28] MEDS ORDERED: WITCH HAZEL 50%/GLYCERIN 12.5% 40 PAD JAR TOPICAL PRN (01:15)
[2016-08-28] MEDS ORDERED: ALUMINUM/MAGNESIUM/SIMETH 30 ML CUP PO PRN (01:15)
[2016-08-28] MEDS ORDERED: OXYTOCIN 30 UNITS-500ML PREMIX 500 ML IV ONE (01:15)
[2016-08-28] MEDS ORDERED: ZOLPIDEM TARTRATE 5 MG TAB PO PRN (01:15)
[2016-08-28] MEDS ORDERED: oxyCODONE/ACETAMINOPHEN 5 MG/325 MG TAB PO PRN ×2 (01:15)
[2016-08-28] MEDS ORDERED: fentaNYL 2MCG-BUPIV 0.125% 100 ML EPIDURAL SCH (04:15)
[2016-08-28] MEDS ORDERED: DO NOT ADMINISTER ANTICOAGULANTS PRN (04:15)
[2016-08-28] MEDS ORDERED: NO SYSTEM NARCOTICS PRN (04:15)
[2016-08-28] MEDS ORDERED: ePHEDrine/NS 25 MG/5 ML SYR IV PRN (04:15)
[2016-08-28] MEDS ORDERED: SODIUM CHLORIDE 0.9% FLUSH 10 ML FLUSH IV FLUSH SCH (09:00)
[2016-08-28] MEDS: FLUoxetine HCL 20 MG CAP PO SCH (09:03)
[2016-08-28] MEDS: IBUPROFEN 600 MG TAB PO PRN ×2 (15:08→21:05)
[2016-08-28] MEDS: ACETAMINOPHEN 325 MG TAB PO PRN ×2 (15:08→21:05)
[2016-08-28] MEDS ORDERED: MEASLES, MUMPS, RUBELLA VACCINE 0.5 ML VIAL SQ ONE (16:00)
[2016-08-28] MEDS ORDERED: DIPHTH/TETANUS/ACEL PERTUSSIS (BOOSTER) 0.5 ML VIAL/PFS IM ONE (16:00)
[2016-08-28] MEDS ORDERED: IBUP-232 PO (18:02)
--- NOTE | 2016-08-28 18:03 | HHI.DCPOC ---
Discharge Care Plan Diagnosis: (1) Vaginal delivery Report Symptoms to Your Doctor -Temperature above 100.5 degrees -Redness, of incision or excessive or foul smelling drainage -Unusual pain or calf pain -Increased vaginal bleeding -Painful or difficulty urinating -Feelings of extreme sadness or anxiety after 2 weeks Goals to Promote Your Health * To prevent worsening of your condition and complications * To maintain your health at the optimal level Directions to Meet Your Goals Take your medications as prescribed Follow your dietary instruction Follow activity as directed Ensure plenty of rest for recovery Drink fluids for hydration Keep your appointments as scheduled Take your immunizations and boosters as scheduled If your symptoms worsen call your PCP, if no PCP go to Urgent Care Center or Emergency Room Smoking is Dangerous to Your Health. Avoid second hand smoke Call the 24-hour crisis hotline for domestic abuse at Eric Spencer MD Aug 28, 2016 18:03
[2016-08-28] MEDS: DOCUSATE SODIUM 50 MG/SENNA 8.6 MG TAB PO PRN (21:06)
[2016-08-29] MEDS: IBUPROFEN 600 MG TAB PO PRN ×2 (02:54→09:12)
[2016-08-29] MEDS: ACETAMINOPHEN 325 MG TAB PO PRN ×2 (02:54→09:12)
[2016-08-29 03:54] VITALS: RESP 20
[2016-08-29] MEDS: DOCUSATE SODIUM 50 MG/SENNA 8.6 MG TAB PO PRN (09:12)
[2016-08-29] MEDS: FLUoxetine HCL 20 MG CAP PO SCH (09:12)
== END 2016-08-29 14:34 | disposition home or self-care (01) | DRG 775 ==
LOC: HOBED 05:59 → H2EA 06:38 → H1EA 08-28 03:49
PROVIDERS: ADMIT Obstetrics & Gynecology; ATTEND Obstetrics & Gynecology
PROC: 3E0S3CZ (ICD-10-PCS; 2016-08-27)
PROC: 00HU33Z Insertion of Infusion Device into Spinal Canal, Percutaneous Approach (ICD-10-PCS; 2016-08-27)
PROC: 10E0XZZ Delivery of Products of Conception, External Approach (ICD-10-PCS; principal; 2016-08-28)
PROC: 0W8NXZZ Division of Female Perineum, External Approach (ICD-10-PCS; 2016-08-28)
DX: O42.02 Full-term premature rupture of membranes, onset of labor within 24 hours of rupture (principal); O99.72 Diseases of the skin and subcutaneous tissue complicating childbirth; L73.9 Follicular disorder, unspecified; O35.8XX0 Maternal care for other (suspected) fetal abnormality and damage, not applicable or unspecified; Z37.0 Single live birth; Z3A.39 39 weeks gestation of pregnancy
CPT/HCPCS: 59025; 80053; 81001; 84112; 84550; 85025; 86900; 86901; 90715; J2590; J3010; J7120